=== PATIENT | female | born 1955 | race Caucasian/White ===

== ENCOUNTER 2018-11-24 17:53 | Emergency (ER) | payer MEDICARE, MEDICAID ==
[~2018-11-24 17:53] MED LIST: METF-415 PO
[2018-11-24 19:29] LABS: CLARITY URINE CLOUDY (CLEAR); COLOR URINE ORANGE (YELLOW); KETONES URINE NEGATIVE (NEGATIVE); LEUKOCYTE ESTERASE URINE 3+ (NEGATIVE); NITRITE URINE POSITIVE (NEGATIVE); OCCULT BLOOD URINE 3+ (NEGATIVE); PH URINE 5.5 (4.5-8.0); PROTEIN URINE 1+ (NEGATIVE); SPECIFIC GRAVITY URINE 1.009 (1.005-1.030); UROBILINOGEN URINE 0.2 E.U./dL (0.2-1.0)
[2018-11-24] MEDS ORDERED: LIDOCAINE HCL/PF 1% 10 MG/ML 5ML VIAL IJ ONE (20:00)
[2018-11-24] MEDS ORDERED: CEFTRIAXONE SODIUM 1 G/VIAL IM ONE (20:00)
[2018-11-24 20:20] VITALS: BP 128/88
== END 2018-11-24 20:28 | disposition home or self-care (01) ==
LOC: ER 18:00
DX: N39.0 Urinary tract infection, site not specified (principal); E11.9 Type 2 diabetes mellitus without complications; R41.82 Altered mental status, unspecified; Z98.890 Other specified postprocedural states
CPT/HCPCS: 81003; 87077; 87086; 87186; 96372; 99283; J0696; J3490

== ENCOUNTER 2018-12-13 20:58 | Emergency (ER) | payer MEDICARE, MEDICAID ==
[~2018-12-13] VITALS: Ht 157.5 cm; Wt 52.2 kg
[2018-12-14 00:13] LABS: CLARITY URINE CLOUDY (CLEAR); COLOR URINE YELLOW (YELLOW); KETONES URINE NEGATIVE (NEGATIVE); LEUKOCYTE ESTERASE URINE 3+ (NEGATIVE); NITRITE URINE NEGATIVE (NEGATIVE); OCCULT BLOOD URINE 3+ (NEGATIVE); PH URINE 6.5 (4.5-8.0); PROTEIN URINE 1+ (NEGATIVE); SPECIFIC GRAVITY URINE 1.006 (1.005-1.030); UROBILINOGEN URINE 0.2 E.U./dL (0.2-1.0)
[2018-12-14 00:16] LABS: BASOPHILS % 0.5 % (0.0-2.0); EOSINOPHILS % 1.1 % (0.0-5.0); HEMATOCRIT. 36.4 % (36.0-48.0); HEMOGLOBIN. 12.1 g/dL (12.0-16.0); LYMPHOCYTES % 39.6 % (20.0-50.0); MEAN CORPUSCULAR HEMOGLOBIN 29.9 pg (28.0-32.0); MEAN CORPUSCULAR VOLUME 90.1 fL (81.0-99.0); MEAN PLATELET VOLUME 7.4 fl (7.4-10.4); NEUTROPHILS % 52.8 % (40.0-76.0); PLATELET 311 x1000/uL (130-400); RED BLOOD CELL COUNT 4.04 mill/uL (4.2-5.4); RED CELL DISTRIBUTION WIDTH 14.3 % (11.6-14.6)
[2018-12-14 00:19] LABS: CHLORIDE 104 mEq/L (98-107)
[2018-12-14 01:10] VITALS: BP 160/55
== END 2018-12-14 01:11 | disposition home or self-care (01) ==
LOC: ER 20:58
DX: N30.90 Cystitis, unspecified without hematuria (principal); E11.9 Type 2 diabetes mellitus without complications; Z87.440 Personal history of urinary (tract) infections; Z98.890 Other specified postprocedural states; Z79.84 Long term (current) use of oral hypoglycemic drugs
CPT/HCPCS: 36415; 99283